=== PATIENT | female | born 2000 | race Caucasian/White ===

== ENCOUNTER 2022-09-28 03:11 | Observation (INO) ==
[2022-09-28] MEDS ORDERED: HYDROmorphone INJ 0.5 MG/0.5 ML SYR IV STA (03:39)
[2022-09-28] MEDS ORDERED: ONDANSETRON INJ 2 MG/ML 2 ML VIAL IV STA (03:39)
[2022-09-28] MEDS ORDERED: SODIUM CHLORIDE 0.9% 500 ML IV STA (03:39)
--- NOTE | 2022-09-28 03:54 | Emergency Department Note ---
Impression & Plan Cholelithiasis The case was signed out to Dr. Murry at change of shift awaiting results of an MRI of the abdomen to further evaluate a space-occupying lesion in the liver ED Provider Note NAME: KELLY DIALLO AGE: 22 SEX: F ARRIVES VIA: Walk-In INFORMANT: Patient ED PROVIDER(S): Bess Nowak DO CHIEF COMPLAINT: Right upper quadrant abdominal pain PLAN: Disposition: The case was signed out to Dr. Murry at change of shift Condition: Good MEDICAL DECISION MAKING: This is a 22-year-old female patient who presents to the emergency department with right upper quadrant abdominal pain. Pain started at 11 PM tonight and was associated with vomiting.. The patient 1 previous episode similar to this 2 months ago. Laboratory studies were drawn today which revealed no leukocytosis or anemia. Electrolytes were unremarkable. Renal function was normal. Liver function tests were normal. Urinalysis was normal. Pain was relieved with IV analgesia. Nausea was relieved with IV antiemetics. Her presentation seems consistent with acute cholecystitis or biliary colic. Ultrasound of the right upper quadrant revealed no evidence of acute cholecystitis but there was cholelithiasis. An incidental note was made of a space-occupying lesion within the liver. The patient will require an MRI of the liver. The case was signed out to Dr. Murry at change of shift awaiting for MRI of the abdomen. Triage Nursing notes reviewed and agree with them. Vital Signs: reviewed and unremarkable Differential diagnosis: Pneumonia, colitis, ulcer disease, cholecystitis, biliary colic, ureteral colic, pyelonephritis ER treatment provided: phototypesetting equipment monitor IV Dilaudid IV Zofran IV normal saline bolus Diagnostics independently interpreted by me: Laboratory studies: See below Imaging studies: As per stat rad Right upper quadrant ultrasound: See report HPI: 22 arrives for evaluation of right upper quadrant pain. Patient developed right upper quadrant abdominal pain around 11 PM this evening. She then noted the pain was not improving and had an episode of vomiting. Patient describes having a similar episode in July of this year for which she was evaluated and had an ultrasound of that kidney which was normal. She was treated with prednisone. Patient describes eating at [employer] last night where she had steak. PAST MEDICAL HISTORY:Tuyet's, anxiety, seasonal allergies FAMILY HISTORY:Cholecystitis-mother SOCIAL HISTORY:Patient lives with her family; she works for the [employer] HOME MEDICATIONS:See list ALLERGIES:None VITALS:See Below PHYSICAL EXAMINATION: HEENT: Head - normocephalic and atraumatic. Pupils are equal, round, and reactive to light. Extraocular eye muscles are intact, and sclera are anicteric. Nose - moist nasal mucosa without discharge. Mouth - moist buccal mucosa. Oropharynx is nonerythematous and there is no tonsillar exudate or edema noted. Neck: Supple; no cervical lymphadenopathy Heart: Regular rate and rhythm. There is a normal S1 and S2 with no murmurs, clicks, or gallops appreciated. Lungs: Clear to auscultation bilaterally with no wheezes, rales, or rhonchi. Abdomen: Soft, moderate tenderness to palpation in the right upper quadrant with palpation, nondistended, with good bowel sounds. There are no palpable pulsatile masses or hepatosplenomegaly. There is no guarding, rigidity, or rebound noted. Extremities: No evidence of cyanosis, clubbing, or edema. There are easily palpable peripheral pulses. Skin: warm and dry with good turgor and no rashes. ED COURSE: Times/Reassessments: 330: Patient was evaluated in room C4. A complete history and physical was performed. An IV lock was initiated and labs are drawn as above. IV normal saline bolus Patient was given a dose of IV Dilaudid and IV Zofran. She went for ultrasound of the right upper quadrant. Upon repeat evaluation, the patient was feeling much better. Reviewed the results of the laboratory studies with the patient. I reviewed the results of the ultrasound with the patient. Case will be signed out to Dr. Murry at change of shift. Bess Nowak DO Past Med/Surg History Surgical History History of ankle surgery S/P wisdom tooth extraction Family History Father Stroke Hypertension Mother Hypertension Denies family history of Ovarian cancer Prostate cancer Myocardial infarction Breast cancer Colorectal cancer Social History Smoking Status: Never smoker Second Hand Exposure: No; Do You Dip or Chew Tobacco: No; Hx Alcohol Use: Yes Alcohol type: hard liquor Alcohol Intake Frequency: Monthly or Less Hx Substance Use: No Preferred Language: Luxembourgish Communication Ability: Effective Visual Impairment: No Limitations Hearing Ability: Normal Director Gift Required: No marital status: Single Current Living Situation: Significant Other current occupational status: employed current occupation: [employer] How many Children do You have: 0 Feels Safe at Home: Yes Childhood Exposure to Second-Hand Smoke: Yes Diet: regular Dental Care, Regularly: Yes Physical Activity Frequency: 1-2 Times per Week Seatbelt Use: always Sunscreen Use: Yes Assistive Devices: None Allergies Allergies Allergy/AdvReac Type Severity Reaction Status Date / Time No Known Allergies Allergy Verified 06/05/22 08:57 Home Meds Home Medications Medication Instructions Recorded Confirmed cetirizine 10 mg tablet (Zyrtec) 10 mg PO DAILY PRN 03/21/21 06/05/22 Previous Rx's Medication Instructions Recorded norethindrone acetate 1 mg-ethinyl 1 tab PO DAILY #63 tabs 02/09/22 estradiol 20 mcg tablet (Junel) escitalopram oxalate 10 mg tablet 10 mg PO DAILY #30 tabs 05/01/22 (Lexapro) levothyroxine 88 mcg tablet 88 mcg PO DAILY #30 tabs 06/05/22 hydroxyzine HCl 25 mg tablet 25 mg PO TID PRN itching #30 tabs 08/04/22 ondansetron 4 mg disintegrating 4 mg PO Q8H PRN nausea and 08/04/22 tablet vomiting #30 tabs Results & Data (ED) Vital Signs Vital Signs - 24 hr 09/28/22 03:15 09/28/22 03:57 09/28/22 05:33 Temperature 35.8 C L Temperature Source Temporal Artery Scan Pulse Rate 82 Pulse Rate [Apical] 70 Respiratory Rate 17 15 Respiratory Depth Normal Blood Pressure 120/83 Blood Pressure [Right Arm] 117/69 Blood Pressure Mean 95 Blood Pressure Mean [Right Arm] 85 Pulse Oximetry 98 98 Oxygen Delivery Method Room Air Room Air Sepsis Recent Fever Within 48 Hours No Sepsis New/Unexplained Change in Mental Status N/A Sepsis Action Taken by Nursing No Action Required Laboratory Data 09/28/22 03:45 09/28/22 03:45 Lab Results 09/28/22 09/28/22 09/28/22 Range/Units 03:45 03:45 03:45 WBC 9.20 (4.8-10.8) K/ul RBC 4.80 (4.20-5.40) M/uL Hgb 14.2 (12.0-16.0) g/dl Hct 42.7 (37.0-47.0) % MCV 89.0 (80.0-100.0) fL MCH 29.6 (25.0-34.0) pg MCHC 33.3 (32.0-36.0) g/dL RDW Std Deviation 37.4 (36.4-46.3) fL RDW Coeff of Ebonie 11.6 (11.5-14.5) % Plt Count 357 (130-400) K/uL MPV 9.6 (9.4-12.4) fL Immature Gran % (Auto) 0.3 % Neut % (Auto) 54.8 % Lymph % (Auto) 35.8 % Banks % (Auto) 5.9 % Eos % (Auto) 2.9 % Baso % (Auto) 0.3 % Neut # (Auto) 5.04 (1.40-6.50) K/uL Lymph # (Auto) 3.29 (1.2-3.4) K/uL Banks # (Auto) 0.54 (0.11-0.59) K/uL Eos # (Auto) 0.27 (0-0.50) K/uL Baso # (Auto) 0.03 (0-0.2) K/uL Immature Gran # (Auto) 0.03 (0.01-0.20) K/uL Sodium 138 (136-145) mmol/L Potassium 4.1 (3.5-5.1) mmol/L Chloride 105 (98-107) mmol/L Carbon Dioxide 25 (21-32) mmol/L Anion Gap 8 (3-11) BUN 9 (6-23) mg/dl Creatinine 0.81 (0.6-1.2) mg/dl Est Cr Clr Drug Dosing 124.3 ml/min Est GFR ( Amer) 117.8 ml/min Est GFR (Non-Af Amer) 101.7 ml/min BUN/Creatinine Ratio 11.1 (10-20) Glucose 85 (70-99(Fasting)) mg/dl Calcium 9.2 (8.6-10.3) mg/dl Total Bilirubin 0.2 (0.2-1.0) mg/dl AST 20 (13-39) U/L ALT 25 (7-52) U/L Alkaline Phosphatase 95 (34-104) U/L Total Protein 7.7 (6.0-8.3) gm/dl Albumin 4.2 (3.4-5.0) gm/dl Globulin 3.5 (2.5-4.0) gm/dl Albumin/Globulin Ratio 1.2 (0.9-2) Lipase 28 (11-82) U/L HCG, Qual Negative (Negative) Urine Color Urine Appearance (Clear) Urine pH (4.5-7.5) Ur Specific [place] (1.000-1.030) Urine Protein (Negative) Urine Glucose (UA) (Negative) Urine Ketones (Negative) Urine Blood (Negative) Urine Nitrite (Negative) Urine Bilirubin (Negative) Urine Urobilinogen (Negative) Ur Leukocyte Esterase (Negative) Urine WBC (Auto) (0-5) /hpf Urine RBC (Auto) (0-4) /hpf U Hyaline Cast (Auto) (0-5) /lpf U Epithel Cells (Auto) (0-5) /lpf Urine Bacteria (Auto) (Negative) 09/28/22 Range/Units 03:54 WBC (4.8-10.8) K/ul RBC (4.20-5.40) M/uL Hgb (12.0-16.0) g/dl Hct (37.0-47.0) % MCV (80.0-100.0) fL MCH (25.0-34.0) pg MCHC (32.0-36.0) g/dL RDW Std Deviation (36.4-46.3) fL RDW Coeff of Ebonie (11.5-14.5) % Plt Count (130-400) K/uL MPV (9.4-12.4) fL Immature Gran % (Auto) % Neut % (Auto) % Lymph % (Auto) % Banks % (Auto) % Eos % (Auto) % Baso % (Auto) % Neut # (Auto) (1.40-6.50) K/uL Lymph # (Auto) (1.2-3.4) K/uL Banks # (Auto) (0.11-0.59) K/uL Eos # (Auto) (0-0.50) K/uL Baso # (Auto) (0-0.2) K/uL Immature Gran # (Auto) (0.01-0.20) K/uL Sodium (136-145) mmol/L Potassium (3.5-5.1) mmol/L Chloride (98-107) mmol/L Carbon Dioxide (21-32) mmol/L Anion Gap (3-11) BUN (6-23) mg/dl Creatinine (0.6-1.2) mg/dl Est Cr Clr Drug Dosing ml/min Est GFR ( Amer) ml/min Est GFR (Non-Af Amer) ml/min BUN/Creatinine Ratio (10-20) Glucose (70-99(Fasting)) mg/dl Calcium (8.6-10.3) mg/dl Total Bilirubin (0.2-1.0) mg/dl AST (13-39) U/L ALT (7-52) U/L Alkaline Phosphatase (34-104) U/L Total Protein (6.0-8.3) gm/dl Albumin (3.4-5.0) gm/dl Globulin (2.5-4.0) gm/dl Albumin/Globulin Ratio (0.9-2) Lipase (11-82) U/L HCG, Qual (Negative) Urine Color Yellow Urine Appearance Clear (Clear) Urine pH 7.0 (4.5-7.5) Ur Specific [place] 1.015 (1.000-1.030) Urine Protein Negative (Negative) Urine Glucose (UA) Negative (Negative) Urine Ketones Negative (Negative) Urine Blood Negative (Negative) Urine Nitrite Negative (Negative) Urine Bilirubin Negative (Negative) Urine Urobilinogen Negative (Negative) Ur Leukocyte Esterase Trace H (Negative) Urine WBC (Auto) 1-5 (0-5) /hpf Urine RBC (Auto) 0-4 (0-4) /hpf U Hyaline Cast (Auto) 1-5 (0-5) /lpf U Epithel Cells (Auto) >30 H (0-5) /lpf Urine Bacteria (Auto) 1+ H (Negative) Administered Medications Discontinued Medications Hydromorphone HCl (Hydromorphone Inj 0.5 Mg/0.5 Ml Syr) 0.5 mg IV NOW STA Stop: 09/28/22 03:40 Last Admin: 09/28/22 04:00 Dose: 0.5 mg Documented By: DARRYN Sodium Chloride (Nss) 500 mls @ 999 mls/hr IV .Q31M STA Stop: 09/28/22 04:09 Last Infusion: 09/28/22 04:48 Dose: 0 mls/hr Documented By: Admin: 09/28/22 04:00 Dose: 999 mls/hr Documented By: DARRYN Ondansetron HCl (Ondansetron Inj 2 Mg/Ml 2 Ml Vial) 4 mg IV NOW STA Stop: 09/28/22 03:40 Last Admin: 09/28/22 04:00 Dose: 4 mg Documented By: DARRYN Imaging Data Radiologist's Impression: Gallbladder Ultrasound 09/28/22 03:39 Exam(s): US GALLBLADDER EXAM: US Abdomen Limited, Gallbladder CLINICAL HISTORY: Reason for exam: ruq pain. TECHNIQUE: Real-time ultrasound of the right upper quadrant with image documentation. COMPARISON: No relevant prior studies available. FINDINGS: Liver: There is a 2.6 x 2 cm diameter space-occupying lesion seen in the left lobe of the liver. Fatty infiltration of the liver. Gallbladder: There is cholelithiasis without evidence of acute cholecystitis. 5 mm polyp seen in the fundus of the gallbladder. Common bile duct: CBD caliber measures 2.5 mm in diameter. No stones. No dilation. Pancreas: Unremarkable as visualized. IMPRESSION: 1. Cholelithiasis without evidence of acute cholecystitis 2. Fatty liver. Space-occupying mass lesion in the left lobe of the liver which can be further evaluated on MRI study. Electronically signed by: Shin Reeves MD 09/28/22 06:41 AM Discharge Plan Visit Data Chief Complaint: Rib Injury/Pain Stated Complaint: RIGHT SIDED RIB PAIN ED Provider: Rigo Murry Discharge Problem: Cholelithiasis Discharge Instructions Krames/Other Patient Handouts: Treating Gallstones, Gallstones Dc, ED Gallstones with Biliary Colic Activity Restrictions/Additional Instructions: Rest Take a bland diet and plenty of clear liquids If you develop any fevers or vomiting, return to the emergency department If you develop increasing pain that will not resolve, return to the emergency department. Otherwise follow-up with his general surgery Forms Stand Alone Forms: My [facility] [employer] [facility] [employer] Prescriptions Prescriptions: No Action norethindrone ac-eth estradiol [03/13 (21)] 1-20 mg-mcg tablet 1 tab PO DAILY Qty: 63 4RF escitalopram oxalate [Lexapro] 10 mg tablet 10 mg PO DAILY Qty: 30 3RF hydroxyzine HCl 25 mg tablet 25 mg PO TID PRN (Reason: itching) Qty: 30 2RF ondansetron 4 mg tablet,disintegrating 4 mg PO Q8H PRN (Reason: nausea and vomiting) Qty: 30 1RF cetirizine [Zyrtec] 10 mg tablet 10 mg PO DAILY PRN levothyroxine 88 mcg tablet 88 mcg PO DAILY Qty: 30 4RF Rx Instructions: Take one tablet by mouth once daily. Take 30-45 minutes before any other oral intake. Referrals Referrals: Paul Lopez MD [Physician] - (Contact his office in the morning for a surgical appointment) Dimas Lopez DO [Primary Care Provider] -
[2022-09-28 04:10] LABS: Basophils # (auto) 0.03 K/uL (0-0.2); Basophils % (auto) 0.3 %; Eosinophils # (auto) 0.27 K/uL (0-0.50); Eosinophils % (auto) 2.9 %; Hematocrit (blood only) 42.7 % (37.0-47.0); Hemoglobin 14.2 g/dl (12.0-16.0); Immature Granulocytes # (auto) 0.03 K/uL (0.01-0.20); Immature Granulocytes % (auto) 0.3 %; Lymphocytes # (auto) 3.29 K/uL (1.2-3.4); Lymphocytes % (auto) 35.8 %; Mean Corpuscular Hemoglobin 29.6 pg (25.0-34.0); Mean Corpuscular Hgb Conc 33.3 g/dL (32.0-36.0); Mean Platelet Volume 9.6 fL (9.4-12.4); Monocytes # (auto) 0.54 K/uL (0.11-0.59); Monocytes % (auto) 5.9 %; Neutrophils # (auto) 5.04 K/uL (1.40-6.50); Neutrophils % (auto) 54.8 %; Platelet Count 357 K/uL (130-400); RDW Coefficient of Variation 11.6 % (11.5-14.5); RDW Standard Deviation 37.4 fL (36.4-46.3)
[2022-09-28 04:13] LABS: Appearance Urine Clear (Clear); Bacteria Urine Automated 1+ (Negative); Bilirubin Urine Negative (Negative); Blood Urine Negative (Negative); Color Urine Yellow; Epithelial Cell Urine Auto >30 /lpf (0-5); Glucose Urine UA Negative (Negative); Ketones Urine Negative (Negative); Leukocyte Esterase Urine Trace (Negative); Nitrite Urine Negative (Negative); Protein Urine Negative (Negative); RBC Urine Automated 0-4 /hpf (0-4); Specific Gravity Urine 1.015 (1.000-1.030); Urobilinogen Urine Negative (Negative)
[2022-09-28 04:29] LABS: Albumin Globulin Ratio 1.2 (0.9-2); Albumin Level 4.2 gm/dl (3.4-5.0); BUN Creatinine Ratio 11.1 (10-20); Bilirubin,Total 0.2 mg/dl (0.2-1.0); Calcium 9.2 mg/dl (8.6-10.3); Creatinine Clr Calc Pharmacy 124.3 ml/min; Est GFR (African American) 117.8 ml/min; Est GFR (Non-African American) 101.7 ml/min; Globulin 3.5 gm/dl (2.5-4.0); Potassium 4.1 mmol/L (3.5-5.1); Total Protein 7.7 gm/dl (6.0-8.3)
[2022-09-28 04:32] LABS: Pregnancy Test, Serum Negative (Negative)
--- NOTE | 2022-09-28 06:41 | Ultrasound Report ---
Exam(s): US GALLBLADDER EXAM: US Abdomen Limited, Gallbladder CLINICAL HISTORY: Reason for exam: ruq pain. TECHNIQUE: Real-time ultrasound of the right upper quadrant with image documentation. COMPARISON: No relevant prior studies available. FINDINGS: Liver: There is a 2.6 x 2 cm diameter space-occupying lesion seen in the left lobe of the liver. Fatty infiltration of the liver. Gallbladder: There is cholelithiasis without evidence of acute cholecystitis. 5 mm polyp seen in the fundus of the gallbladder. Common bile duct: CBD caliber measures 2.5 mm in diameter. No stones. No dilation. Pancreas: Unremarkable as visualized. IMPRESSION: 1. Cholelithiasis without evidence of acute cholecystitis 2. Fatty liver. Space-occupying mass lesion in the left lobe of the liver which can be further evaluated on MRI study. Electronically signed by: Shin Reeves MD 09/28/22 06:41 AM
[2022-09-28] MEDS ORDERED: GADOXETATE DISODIUM IV ONE (07:46)
--- NOTE | 2022-09-28 08:25 | Magnetic Resonance Report ---
MRI OF THE ABDOMEN COMBO; MRCP CLINICAL HISTORY: Cholecystitis. Liver lesion. COMPARISON STUDY: Abdominal ultrasound dated 09/28/2022.. TECHNIQUE: MRI of the abdomen is performed transverse T1 and T2-weighted sequences in the axial and c oronal planes. Contrast enhanced sequences were acquired following the IV administration of 10 cc of Eovist. Additional high-resolution MRCP images were obtained. 3-D reformats are created and assesse d. Diffusion weighted imaging and subtraction imaging was utilized. FINDINGS: Lower chest: No pleural effusion is identified. The heart is normal in size end pericardial effusion. There is a small hiatal hernia. Liver: The liver is normal in size, contour, and signal intensity. No intrahepatic biliary ductal dil atation is seen. The hepatic veins and portal veins are patent. There is a 2.6 x 2.0 cm faintly T2 hy perintense and arterially hypervascular lesion in the left lobe of liver seen on axial postcontrast i mage #38. A similar-appearing lesion in the right lobe seen on the same image measures 4.8 x 3.9 cm. These lesions become nearly isointense to the liver on the portal venous phase imaging and retain Eov ist on the delayed phase imaging. These are typical for benign focal nodular hyperplasias. A third 1. 5 cm focal nodular hyperplasia is seen more inferiorly adjacent to gallbladder fossa on image #48. Gallbladder/MRCP: There are numerous gallstones. The gallbladder is distended, and the wall is thicke corey and edematous. This is consistent with acute cholecystitis. There is no intra or extrahepatic marvel iary ductal dilatation. The common bile duct measures up to 3.5 mm diameter. No intraluminal filling defects are seen to suggest choledocholithiasis. The pancreatic duct is normal in caliber. Spleen: Normal in size and signal intensity. Pancreas: Unremarkable. Adrenal glands: Unremarkable. Kidneys: The kidneys are normal in size and without hydronephrosis. The kidneys enhance and excrete s ymmetrically. Abdominal aorta: Normal in course and caliber. Bowel: Visualized portions of the small bowel and colon show no evidence of obstruction. Peritoneum: There is no abdominal ascites. Lymphadenopathy: None. Skeletal structures: Visualized skeletal structures times are normal marrow signal intensity. IMPRESSION: 1. Cholelithiasis with evidence of acute cholecystitis. 2. There is no choledocholithiasis. 3. There are 3 hepatic lesions identified as detailed above. These show enhancement kinetics consiste nt with benign focal nodular hyperplasias. ACT 112: Negative or not required by law. Electronically signed by: Donato Krishna M.D. 09/28/2022 8:24 AM
--- NOTE | 2022-09-28 08:39 | Emergency Department Note ---
ED Visit Note Patient was signed out to me at change of shift by Dr. Nowak, pending liver MRI for nonspecific lesions noted on ultrasound imaging earlier today. Patient presented with right upper quadrant abdominal pain. MRI imaging was obtained and is concerning for acute cholecystitis. I did discuss this finding with the patient and her significant other at the bedside, general surgery was consulted and the case was discussed with on-call general surgery, Dr. Lopez. He states they will evaluate the patient for potential operative intervention. Patient was evaluated at the bedside by the general surgery midlevel provider, decision was made that the patient will require operative intervention later today. Patient is in agreement to this plan. She was placed for admission in stable condition. .
[2022-09-28] MEDS ORDERED: ceFAZolin 2000MG 2,000 MG/15 ML SYR IV ONE (10:48)
--- NOTE | 2022-09-28 10:48 | History & Physical Report ---
Date of Service September 28, 2022 Assessment & Plan (1) Acute calculous cholecystitis: Plan: 22 year-old female with less than 12 hour history of RUQ pain with radiation to her back and associated nausea and vomiting . Ultrasound showing cholelithiasis, MRCP showing acute cholecystitis. No leukocytosis, afebrile, normal t. bili and LFTS. Plan: Discussed imaging and lab findings with patient. MRCP showing evidence of acute cholecystitis. Discussed indication for cholecystectomy and discussed laparoscopic approach and associated risks of procedure and expected recovery time. She would like to proceed with laparoscopic cholecystectomy. Will plan to take to OR at earliest convenience. Keep NPO COVID preop testing Will given 2 gms Ancef preop Discussed with Dr. Lopez who will see patient preoperatively and obtain informed consent. Plan I have seen and examined the patient agree with the above assessment and plan. In brief, 22-year-old woman with acute cholecystitis. Discussed risks and benefits of laparoscopic cholecystectomy. All questions were answered. Will take her to the operating room at the earliest convenience. History of Present Illness Chief Complaint: RUQ abdominal pain Primary Care Provider: DO Marge Devlin is a 22 year-old female with history of anxiety and hasimoto's thyroiditis presented to ED with complaint of RUQ abdominal pain with associated nausea and vomiting x 1. Pain started last evening around 11 pm. Sudden onset of RUQ pain with radiation to her back. No fevers or chills. Associated nausea with one episode of vomiting. Denies chest pain, shortness of breath, diarrhea, constipation, blood in stools, difficulty urinating or blood in urine. No prior history of gallbladder issues. No prior abdominal surgeries. No blood thining agents. ER work-up included labs which showed no leukocytosis, t. bili and lfts wnl. Ultrasound showing gallstones with no evidence of acute cholecystitis however MRI for follow-up of liver lesions showing distended gallbladder with wall thickening and pericholecystic fluid concerning for acute cholecystitis. Allergies Allergy/AdvReac Type Severity Reaction Status Date / Time No Known Allergies Allergy Verified 09/28/22 11:00 Home Medications Medication Instructions Recorded Confirmed Type cetirizine 10 mg tablet (Zyrtec) 10 mg PO DAILY PRN Allergy Symptoms 03/21/21 09/28/22 History norethindrone acetate 1 mg-ethinyl 1 tab PO DAILY #63 tabs 02/09/22 09/28/22 Rx estradiol 20 mcg tablet (Junel) escitalopram oxalate 10 mg tablet 10 mg PO DAILY #30 tabs 05/01/22 09/28/22 Rx (Lexapro) levothyroxine 88 mcg tablet 88 mcg PO DAILY #30 tabs 06/05/22 09/28/22 Rx hydroxyzine HCl 25 mg tablet 25 mg PO TID PRN itching #30 tabs 08/04/22 09/28/22 Rx ondansetron 4 mg disintegrating 4 mg PO Q8H PRN nausea and 08/04/22 09/28/22 Rx tablet vomiting #30 tabs Past Med/Surg History 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/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 Surgical History (Updated 09/28/22 @ 11:01 by Laura Lay RN) History of ankle surgery right ankle fracture S/P wisdom tooth extraction Family History Father Stroke Hypertension Mother Hypertension Denies family history of Ovarian cancer Prostate cancer Myocardial infarction Breast cancer Colorectal cancer Social History Smoking Status: Never smoker Second Hand Exposure: No; Do You Dip or Chew Tobacco: No; Hx Alcohol Use: Yes Alcohol type: hard liquor Alcohol Intake Frequency: Monthly or Less Hx Substance Use: No Preferred Language: Japanese Communication Ability: Effective Visual Impairment: No Limitations Hearing Ability: Normal Director Of Property Management Required: No marital status: Single Current Living Situation: Significant Other current occupational status: employed current occupation: PART[employer] How many Children do You have: 0 Feels Safe at Home: Yes Childhood Exposure to Second-Hand Smoke: Yes Diet: regular Dental Care, Regularly: Yes Physical Activity Frequency: 1-2 Times per Week Seatbelt Use: always Sunscreen Use: Yes Assistive Devices: None Review of Systems Review of Systems: All systems reviewed & are unremarkable except as noted in HPI & below Physical Exam Constitutional: WD/WN, vitals as above + obese, cooperative and comfortable; no acute distress and not ill appearing Respiratory: normal respiratory effort, lungs clear to auscultation Cardiovascular: RRR, no murmur, no edema Gastrointestinal (Abdomen): Inspection/Auscultation: abdomen normal to inspection; abdomen not distended Percussion/Palpation: + abdomen tender (RUQ on deep palpation, negative Mccann's) and abdomen soft; no guarding, abdomen not rigid and abdomen not firm Skin: no rashes, warm and dry no jaundice Psychiatric: A+Ox3, euthymic affect Results & Data Results & Data Vital Signs (Past 12 Hours) Vital Signs Temp Pulse Pulse Resp BP BP Pulse Ox 09/28/22 10:26 70 18 120/75 98 09/28/22 08:11 78 18 125/85 98 09/28/22 05:33 70 15 117/69 98 09/28/22 03:57 09/28/22 03:15 35.8 C L 82 17 120/83 98 O2 Del Method 09/28/22 10:26 Room Air 09/28/22 08:11 Room Air 09/28/22 05:33 09/28/22 03:57 Room Air 09/28/22 03:15 Room Air Laboratory Results 09/28/22 09/28/22 09/28/22 Range/Units Unknown 03:54 03:45 WBC (4.8-10.8) K/ul RBC (4.20-5.40) M/uL Hgb (12.0-16.0) g/dl Hct (37.0-47.0) % MCV (80.0-100.0) fL MCH (25.0-34.0) pg MCHC (32.0-36.0) g/dL RDW Std Deviation (36.4-46.3) fL RDW Coeff of [place]bonie (11.5-14.5) % Plt Count (130-400) K/uL MPV (9.4-12.4) fL Immature Gran % (Auto) % Neut % (Auto) % Lymph % (Auto) % [place] % (Auto) % Eos % (Auto) % Baso % (Auto) % Neut # (Auto) (1.40-6.50) K/uL Lymph # (Auto) (1.2-3.4) K/uL [place] # (Auto) (0.11-0.59) K/uL Eos # (Auto) (0-0.50) K/uL Baso # (Auto) (0-0.2) K/uL Immature Gran # (Auto) (0.01-0.20) K/uL Sodium (136-145) mmol/L Potassium (3.5-5.1) mmol/L Chloride (98-107) mmol/L Carbon Dioxide (21-32) mmol/L Anion Gap (3-11) BUN (6-23) mg/dl Creatinine (0.6-1.2) mg/dl Est Cr Clr Drug Dosing ml/min Est GFR ( Amer) ml/min Est GFR (Non-Af Amer) ml/min BUN/Creatinine Ratio (10-20) Glucose (70-99(Fasting)) mg/dl Calcium (8.6-10.3) mg/dl Total Bilirubin (0.2-1.0) mg/dl AST (13-39) U/L ALT (7-52) U/L Alkaline Phosphatase (34-104) U/L Total Protein (6.0-8.3) gm/dl Albumin (3.4-5.0) gm/dl Globulin (2.5-4.0) gm/dl Albumin/Globulin Ratio (0.9-2) Lipase (11-82) U/L HCG, Qual Negative (Negative) Urine Color Yellow Urine Appearance Clear (Clear) Urine pH 7.0 (4.5-7.5) Ur Specific [place] 1.015 (1.000-1.030) Urine Protein Negative (Negative) Urine Glucose (UA) Negative (Negative) Urine Ketones Negative (Negative) Urine Blood Negative (Negative) Urine Nitrite Negative (Negative) Urine Bilirubin Negative (Negative) Urine Urobilinogen Negative (Negative) Ur Leukocyte Esterase Trace H (Negative) Urine WBC (Auto) 1-5 (0-5) /hpf Urine RBC (Auto) 0-4 (0-4) /hpf U Hyaline Cast (Auto) 1-5 (0-5) /lpf U Epithel Cells (Auto) >30 H (0-5) /lpf Urine Bacteria (Auto) 1+ H (Negative) SARS-CoV-2, RNA, NAAT NEGATIVE (NEGATIVE) 09/28/22 09/28/22 Range/Units 03:45 03:45 WBC 9.20 (4.8-10.8) K/ul RBC 4.80 (4.20-5.40) M/uL Hgb 14.2 (12.0-16.0) g/dl Hct 42.7 (37.0-47.0) % MCV 89.0 (80.0-100.0) fL MCH 29.6 (25.0-34.0) pg MCHC 33.3 (32.0-36.0) g/dL RDW Std Deviation 37.4 (36.4-46.3) fL RDW Coeff of Ebonie 11.6 (11.5-14.5) % Plt Count 357 (130-400) K/uL MPV 9.6 (9.4-12.4) fL Immature Gran % (Auto) 0.3 % Neut % (Auto) 54.8 % Lymph % (Auto) 35.8 % Phelps % (Auto) 5.9 % Eos % (Auto) 2.9 % Baso % (Auto) 0.3 % Neut # (Auto) 5.04 (1.40-6.50) K/uL Lymph # (Auto) 3.29 (1.2-3.4) K/uL Phelps # (Auto) 0.54 (0.11-0.59) K/uL Eos # (Auto) 0.27 (0-0.50) K/uL Baso # (Auto) 0.03 (0-0.2) K/uL Immature Gran # (Auto) 0.03 (0.01-0.20) K/uL Sodium 138 (136-145) mmol/L Potassium 4.1 (3.5-5.1) mmol/L Chloride 105 (98-107) mmol/L Carbon Dioxide 25 (21-32) mmol/L Anion Gap 8 (3-11) BUN 9 (6-23) mg/dl Creatinine 0.81 (0.6-1.2) mg/dl Est Cr Clr Drug Dosing 124.3 ml/min Est GFR ( Amer) 117.8 ml/min Est GFR (Non-Af Amer) 101.7 ml/min BUN/Creatinine Ratio 11.1 (10-20) Glucose 85 (70-99(Fasting)) mg/dl Calcium 9.2 (8.6-10.3) mg/dl Total Bilirubin 0.2 (0.2-1.0) mg/dl AST 20 (13-39) U/L ALT 25 (7-52) U/L Alkaline Phosphatase 95 (34-104) U/L Total Protein 7.7 (6.0-8.3) gm/dl Albumin 4.2 (3.4-5.0) gm/dl Globulin 3.5 (2.5-4.0) gm/dl Albumin/Globulin Ratio 1.2 (0.9-2) Lipase 28 (11-82) U/L HCG, Qual (Negative) Urine Color Urine Appearance (Clear) Urine pH (4.5-7.5) Ur Specific [place] (1.000-1.030) Urine Protein (Negative) Urine Glucose (UA) (Negative) Urine Ketones (Negative) Urine Blood (Negative) Urine Nitrite (Negative) Urine Bilirubin (Negative) Urine Urobilinogen (Negative) Ur Leukocyte Esterase (Negative) Urine WBC (Auto) (0-5) /hpf Urine RBC (Auto) (0-4) /hpf U Hyaline Cast (Auto) (0-5) /lpf U Epithel Cells (Auto) (0-5) /lpf Urine Bacteria (Auto) (Negative) SARS-CoV-2, RNA, NAAT (NEGATIVE) Diagnostic Findings Exam(s): US GALLBLADDER EXAM: US Abdomen Limited, Gallbladder CLINICAL HISTORY: Reason for exam: ruq pain. TECHNIQUE: Real-time ultrasound of the right upper quadrant with image documentation. COMPARISON: No relevant prior studies available. FINDINGS: Liver: There is a 2.6 x 2 cm diameter space-occupying lesion seen in the left lobe of the liver. Fatty infiltration of the liver. Gallbladder: There is cholelithiasis without evidence of acute cholecystitis. 5 mm polyp seen in the fundus of the gallbladder. Common bile duct: CBD caliber measures 2.5 mm in diameter. No stones. No dilation. Pancreas: Unremarkable as visualized. IMPRESSION: 1. Cholelithiasis without evidence of acute cholecystitis 2. Fatty liver. Space-occupying mass lesion in the left lobe of the liver which can be further evaluated on MRI study. MRI OF THE ABDOMEN COMBO; MRCP CLINICAL HISTORY: Cholecystitis. Liver lesion. COMPARISON STUDY: Abdominal ultrasound dated 09/28/2022.. TECHNIQUE: MRI of the abdomen is performed transverse T1 and T2-weighted sequences in the axial and coronal planes. Contrast enhanced sequences were acquired following the IV administration of 10 cc of Eovist. Additional high- resolution MRCP images were obtained. 3-D reformats are created and assessed. Diffusion weighted imaging and subtraction imaging was utilized. FINDINGS: Lower chest: No pleural effusion is identified. The heart is normal in size end pericardial effusion. There is a small hiatal hernia. Liver: The liver is normal in size, contour, and signal intensity. No intrahepatic biliary ductal dilatation is seen. The hepatic veins and portal veins are patent. There is a 2.6 x 2.0 cm faintly T2 hyperintense and arterially hypervascular lesion in the left lobe of liver seen on axial postcontrast image #38. A similar-appearing lesion in the right lobe seen on the same image measure s 4.8 x 3.9 cm. These lesions become nearly isointense to the liver on the portal venous phase imaging and retain Eovist on the delayed phase imaging. These are typical for benign focal nodular hyperplasias. A third 1.5 cm focal nodular hyperplasia is seen more inferiorly adjacent to gallbladder fossa on image #48. Gallbladder/MRCP: There are numerous gallstones. The gallbladder is distended, and the wall is thickened and edematous. This is consistent with acute cholecystitis. There is no intra or extrahepatic biliary ductal dilatation. The common bile duct measures up to 3.5 mm diameter. No intraluminal filling defects are seen to suggest choledocholithiasis. The pancreatic duct is normal in caliber. Spleen: Normal in size and signal intensity. Pancreas: Unremarkable. Adrenal glands: Unremarkable. Kidneys: The kidneys are normal in size and without hydronephrosis. The kidneys enhance and excrete symmetrically. Abdominal aorta: Normal in course and caliber. Bowel: Visualized portions of the small bowel and colon show no evidence of obstruction. Peritoneum: There is no abdominal ascites. Lymphadenopathy: None. Skeletal structures: Visualized skeletal structures times are normal marrow signal intensity. IMPRESSION: 1. Cholelithiasis with evidence of acute cholecystitis. 2. There is no choledocholithiasis. 3. There are 3 hepatic lesions identified as detailed above. These show enhancement kinetics consistent with benign focal nodular hyperplasias. Code Status & VTE Plan VTE Prophylaxis Plan VTE Prophylaxis will be ordered: Yes
--- NOTE | 2022-09-28 11:21 | Anesthesiology Consultation ---
Date of Service September 28, 2022 Assessment & Plan Chart Review Chart Review: Acceptable Risk for Surgery Consults Requested none History Surgery Operation Date: 09/28/22 14:00 Proposed Procedures p Laparoscopic Cholecystectomy - Paul Lopez MD Height/Weight Height: 5 ft 3 in Weight: 105.2 kg Allergies Allergy/AdvReac Type Severity Reaction Status Date / Time No Known Allergies Allergy Verified 09/28/22 11:00 Medications Home Medications Medication Instructions Recorded Confirmed Last Taken cetirizine 10 mg tablet (Zyrtec) 10 mg PO DAILY PRN Allergy Symptoms 03/21/21 09/28/22 09/27/22 norethindrone acetate 1 mg-ethinyl 1 tab PO DAILY #63 tabs 02/09/22 09/28/22 09/27/22 estradiol 20 mcg tablet (Junel) escitalopram oxalate 10 mg tablet 10 mg PO DAILY #30 tabs 05/01/22 09/28/22 09/27/22 (Lexapro) levothyroxine 88 mcg tablet 88 mcg PO DAILY #30 tabs 06/05/22 09/28/22 09/27/22 hydroxyzine HCl 25 mg tablet 25 mg PO TID PRN itching #30 tabs 08/04/22 09/28/22 Unknown ondansetron 4 mg disintegrating 4 mg PO Q8H PRN nausea and 08/04/22 09/28/22 09/27/22 tablet vomiting #30 tabs NPO Date Last Intake of Fluids: 09/27/22 Time Last Intake of Fluids: 19:00 Date Last Intake of Solids: 09/27/22 Time Last Intake of Solids: 19:00 Past Medical History 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/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 Past Family History Family History Father Stroke Hypertension Mother Hypertension Denies family history of Ovarian cancer Prostate cancer Myocardial infarction Breast cancer Colorectal cancer Past Surgical History Surgical History (Updated 09/28/22 @ 11:01 by Laura Lay RN) History of ankle surgery right ankle fracture S/P wisdom tooth extraction Social History Smoking Status: Never smoker Do You Dip or Chew Tobacco: No Hx Alcohol Use: Yes Alcohol type: hard liquor Hx Substance Use: No Physical Exam Vital Signs Last Vital Signs Temp 36.8 C 09/28/22 10:57 Pulse 75 09/28/22 10:57 Resp 20 09/28/22 10:57 BP 116/75 09/28/22 10:57 Pulse Ox 99 09/28/22 10:57 O2 Del Method Room Air 09/28/22 10:57 Testing Laboratory Results 09/28/22 03:45 09/28/22 03:45 Urine Color Yellow 09/28/22 03:54 Urine Appearance Clear (Clear) 09/28/22 03:54 Urine pH 7.0 (4.5-7.5) 09/28/22 03:54 Ur Specific [place] 1.015 (1.000-1.030) 09/28/22 03:54 Urine Protein Negative (Negative) 09/28/22 03:54 Urine Glucose (UA) Negative (Negative) 09/28/22 03:54 Urine Ketones Negative (Negative) 09/28/22 03:54 Urine Nitrite Negative (Negative) 09/28/22 03:54 Ur Leukocyte Esterase Trace (Negative) H 09/28/22 03:54 Urine WBC (Auto) 1-5 /hpf (0-5) 09/28/22 03:54 Urine RBC (Auto) 0-4 /hpf (0-4) 09/28/22 03:54 U Hyaline Cast (Auto) 1-5 /lpf (0-5) 09/28/22 03:54 U Epithel Cells (Auto) >30 /lpf (0-5) H 09/28/22 03:54 Urine Bacteria (Auto) 1+ (Negative) H 09/28/22 03:54
[2022-09-28] MEDS ORDERED: ONDANSETRON INJ 2 MG/ML 2 ML VIAL IV PRN ×2 (11:22→16:09)
[2022-09-28] MEDS ORDERED: ePHEDrine sulfate 50 MG/ML AMP IV PRN (11:22)
[2022-09-28] MEDS ORDERED: ATROPINE SULFATE 0.1 MG/ML 10ML SYR IV PRN (11:22)
[2022-09-28] MEDS ORDERED: fentaNYL citrate PF 100 MCG/2 ML VIAL IV PRN (11:22)
[2022-09-28] MEDS ORDERED: PROMETHAZINE HCL 12.5 MG in SODIUM CHLORIDE 0.9% 50 ML IV PRN ×2 (11:22→16:09)
[2022-09-28] MEDS ORDERED: HYDROmorphone INJ 2 MG/ML SYR/VIAL IV PRN (11:22)
[2022-09-28] MEDS ORDERED: MIDAZOLAM HCL 1 MG/ML 2ML VIAL ONE (13:09)
[2022-09-28] MEDS ORDERED: fentaNYL citrate PF 100 MCG/2 ML VIAL ONE ×2 (13:09→14:04)
[2022-09-28] MEDS ORDERED: BUPIVACAINE/EPINEPHRINE 0.25% 1:200,000 30 ML VIAL ONE (13:16)
[2022-09-28] MEDS ORDERED: LIDOCAINE 2% 2 ML VIAL/AMP(20MG/ML) INFIL ONE (13:45)
[2022-09-28] MEDS ORDERED: ONDANSETRON INJ 2 MG/ML 2 ML VIAL ONE (13:45)
[2022-09-28] MEDS ORDERED: SUGAMMADEX SODIUM 200 MG/2 ML VIAL IV ONE (13:45)
[2022-09-28] MEDS ORDERED: PROPOFOL IV EMULSION 10 MG/ML 20 ML VIAL IV ONE (13:45)
[2022-09-28] MEDS ORDERED: DEXAMETHASONE SOD INJ 4 MG/ML VIAL ONE (13:45)
[2022-09-28] MEDS ORDERED: ROCURONIUM BROMIDE 10 MG/ML 5 ML VIAL IV ONE (13:45)
--- NOTE | 2022-09-28 14:19 | Post Operative Brief Note ---
Immediate Post Op Note v1 Date of Surgery September 28, 2022 Pre & Post Diagnosis Operation Date: 09/28/22 14:00 Pre-Op Diagnosis: Acute calculous cholecystitis Post-Op Diagnosis: Acute calculous cholecystitis I identified the patient and participated in the time-out.: Yes Procedure Operation Date: 09/28/22 14:00 Actual Procedures p Laparoscopic Cholecystectomy(Not Applicable) - Paul Lopez MD Surgeon Paul Lopez MD Traffic Control Operator СЕРГЕЙ Torrez assisted with tissue retraction, camera op, closure Estimated Blood Loss 5 Findings Consistent with Post-Op Diagnosis
--- NOTE | 2022-09-28 14:19 | Post Operative Brief Note ---
Immediate Post Op Note v1 Date of Surgery September 28, 2022 Pre & Post Diagnosis Operation Date: 09/28/22 14:00 Pre-Op Diagnosis: Acute calculous cholecystitis Post-Op Diagnosis: Acute calculous cholecystitis I identified the patient and participated in the time-out.: Yes Procedure Operation Date: 09/28/22 14:00 Actual Procedures p Laparoscopic Cholecystectomy(Not Applicable) - Paul Lopez MD Surgeon Paul Lopez MD Extrusion Die Template Maker СЕРГЕЙ Torrez assisted with tissue retraction, camera op, closure Estimated Blood Loss 5 Findings Consistent with Post-Op Diagnosis
--- NOTE | 2022-09-28 14:20 | Operative Report ---
Post Operative Report Pre & Post Diagnosis Operation Date: 09/28/22 14:00 Pre-Op Diagnosis: Acute calculous cholecystitis Post-Op Diagnosis: Acute calculous cholecystitis I identified the patient and participated in the time-out.: Yes Procedure Operation Date: 09/28/22 14:00 Actual Procedures p Laparoscopic Cholecystectomy(Not Applicable) - Paul Lopez MD Surgeon Paul Lopez MD Elevator Technician СЕРГЕЙ Torrez assisted with tissue retraction, camera op, closure Estimated Blood Loss 5 Findings Consistent with Post-Op Diagnosis Acute cholecystitis Specimens Gallbladder Drains None Anesthesia Type General Complications No immediate complications Description of Procedure The patient was taken to the operating room, and placed supine on the operating table. A timeout was performed, perioperative antibiotics were administered, SCD boots were placed. After adequate anesthesia and analgesia was obtained, the abdomen was prepped and draped in the normal sterile fashion. Local anesthetic was injected into and around the proposed incision sites. An incision was made with a 15 blade scalpel in the supraumbilical region and carried down to the level of the fascia. The fascia was grasped with a trach hook, and a varies needle was used to enter the abdominal cavity. The abdomen was insufflated to a pressure of 15 mmHg, and a 11 mm trocar was placed in this location. A 10 mm, 30 degree laparoscope was placed into the abdominal cavity, and the abdomen was surveyed. Two 5 mm trochars were placed along the right costal margin, and one 5 mm trocar was placed in the subxiphoid region under direct visualization. The gallbladder was grasped and retracted cephalad and laterally, exposing the triangle of Calot. Dissection began in the triangle with a combination of blunt dissection with the [place] dissector, and judicious use of the hook cautery. The cystic duct and cystic artery were dissected free circumferentially, and a critical view of safety was obtained. The cystic duct and cystic artery were clipped and transected, and the gallbladder was removed from the gallbladder fossa with the hook cautery. The camera was switched to a 5 mm, the gallbladder was placed in an Endo Catch bag, and removed via the supraumbilical port site. The camera was switched back to the 10 mm camera, and the abdomen was surveyed again. Hemostasis was checked and attended, and was excellent. The abdomen was copiously irrigated and suctioned free. Again hemostasis was checked and was excellent. All trochars were removed under direct visualization. The abdomen was d esufflated. The fascia in the 11 mm port site was closed with a 0 Vicryl suture. The skin was closed with a running 4-0 Monocryl subcuticular stitch. Dermabond was applied. The patient tolerated the procedure without complication, and was transferred in stable condition to the PACU. All instrument, needle, and sponge counts were correct at the end of the case. My assistant brand manager was necessary throughout the procedure for tissue retraction, possible camera operation, and closure of the wounds. I understand that section 1842(b)(7)(D) of the Social Security act generally prohibits Medicare physician fee schedule payment for the services of assistants at surgery in teaching hospitals when qualified residents are available to furnish such services. I certify that the services for which payment is claimed were medically necessary and that no qualified resident was available to perform the services. I further understand that these services are subject to postpayment review by the Medicare carrier. I attest to the content of the Intraoperative Record and any orders documented therein. Any exceptions are noted below.
[2022-09-28] MEDS ORDERED: SODIUM CHLORIDE 0.9% 50 ML BAG ONE (14:31)
[2022-09-28] MEDS ORDERED: PROMETHAZINE HCL INJ 25 MG/ML 1 ML VIAL ONE (14:32)
--- NOTE | 2022-09-28 15:06 | Anesthesiology Progress Note ---
Date of Service September 28, 2022 Anesthesia Post Procedure Vital Signs Vital Signs: Temp Pulse Pulse Resp BP BP Pulse Ox 09/28/22 15:00 84 22 130/75 94 09/28/22 14:50 82 24 130/78 98 09/28/22 14:40 85 24 124/74 96 09/28/22 14:30 36 C L 96 H 14 124/72 98 09/28/22 10:57 36.8 C 75 20 116/75 99 09/28/22 10:26 70 18 120/75 98 09/28/22 08:11 78 18 125/85 98 09/28/22 05:33 70 15 117/69 98 09/28/22 03:57 09/28/22 03:15 35.8 C L 82 17 120/83 98 O2 Del Method O2 Flow Rate 09/28/22 15:00 Room Air 09/28/22 14:50 Oxymask 9 09/28/22 14:40 Oxymask 9 09/28/22 14:30 Oxymask 9 09/28/22 10:57 Room Air 09/28/22 10:26 Room Air 09/28/22 08:11 Room Air 09/28/22 05:33 09/28/22 03:57 Room Air 09/28/22 03:15 Room Air Pain Intensity Right Upper Abdomen: Pain Intensity: 8 Transfer of Care Handoff Completed per policy Notes Mental Status: alert / awake / arousable and participated in evaluation Patient Amnestic to Procedure: Yes Nausea / Vomiting: adequately controlled Pain: adequately controlled Airway Patency, RR, SpO2: stable & adequate BP & HR: stable & adequate Hydration State: stable & adequate Anesthetic Complications: no major complications apparent
[2022-09-28] MEDS ORDERED: MoRPHine SULFATE 2 MG/ML CARP IV PRN (16:09)
[2022-09-28] MEDS ORDERED: oxyCODONE/ACETAMINOPHEN 5mg/325mg TAB PO PRN (16:09)
[2022-09-28] MEDS ORDERED: KETOROLAC 30 MG/ML VIAL IV PRN (16:09)
[2022-09-28] MEDS ORDERED: diphenhydrAMINE Capsule 25 MG CAP PO PRN (16:09)
[2022-09-28] MEDS: ACETAMINOPHEN 500 MG TAB PO PRN (18:01)
[2022-09-28] MEDS ORDERED: MELATONIN 3 MG TAB PO PRN (21:01)
[2022-09-29] MEDS: ACETAMINOPHEN 500 MG TAB PO PRN (06:23)
[2022-09-29] MEDS ORDERED: LEVOTHYROXINE SODIUM 88 MCG TABLET PO SCH (06:30)
[2022-09-29] MEDS ORDERED: ENOXAPARIN INJ 40 MG/0.4 ML SYR SQ SCH (08:00)
[2022-09-29] MEDS ORDERED: ESCITALOPRAM OXALATE 10 MG TAB PO SCH (09:00)
--- NOTE | 2022-09-29 10:51 | Discharge Summary ---
Date of Service September 29, 2022 Admission HPI Per Admitting Provider Marge is a 22 year-old female with history of anxiety and hasimoto's thyroiditis presented to ED with complaint of RUQ abdominal pain with associated nausea and vomiting x 1. Pain started last evening around 11 pm. Sudden onset of RUQ pain with radiation to her back. No fevers or chills. Associated nausea with one episode of vomiting. Denies chest pain, shortness of breath, diarrhea, constipation, blood in stools, difficulty urinating or blood in urine. No prior history of gallbladder issues. No prior abdominal surgeries. No blood thining agents. ER work-up included labs which showed no leukocytosis, t. bili and lfts wnl. Ultrasound showing gallstones with no evidence of acute cholecystitis however MRI for follow-up of liver lesions showing distended gallbladder with wall thickening and pericholecystic fluid concerning for acute cholecystitis. Principal Diagnosis acute calculous cholecystitis Discharge Exam Constitutional WD/WN, vitals as above + obese, cooperative and comfortable; + not well nourished, no acute distress and not ill appearing Neck normal visual inspection and trachea midline Respiratory normal respiratory effort; no respiratory distress Gastrointestinal (Abdomen) Inspection/Auscultation: abdomen normal to inspection and + abdominal surgical incision (c/d/i with dermabond); abdomen not distended Percussion/Palpation: + abdomen tender (at incision sites appropriate postop) and abdomen soft; no guarding, abdomen not rigid and abdomen not firm Skin no rashes, warm and dry Psychiatric A+Ox3, euthymic affect Discharge Data Allergies Allergy/AdvReac Type Severity Reaction Status Date / Time No Known Allergies Allergy Verified 09/28/22 11:00 Consultations 09/28/22 10:09 ED Decision to Admit Stat Procedures Performed Operation Date: 09/28/22 14:00 Actual Procedures p Laparoscopic Cholecystectomy(Not Applicable) - Paul Lopez MD Ordered Studies 09/28/22 03:39 US gallbladder Stat 09/28/22 06:45 MRI Abdomen [MR abdomen wo/w con] Urgent Hospital Course (1) Acute calculous cholecystitis: Patient taken to operating room for laparoscopic cholecystectomy by Dr. Lopez on 09/28/2022. Patient found to have acute cholecystitis. Patient tolerated procedure without difficulty. Transferred to recovery then to medical/surgical floor for postoperative care. Diet was advanced as tolerated, activity as tolerated, po pain medicaiton and antiemetics ordered as needed. POD # 1 , avss, postop pain controlled, no n,v, tolerated diet. Patient was discharged home on POD # 1 in stable condition. Total Time Total Time Spent Total Time Spent (In Minutes): 20 Total Time Includes: Examination of the Patient, Discharge Planning and Medication Reconciliation Discharge Plan Discharge Items Patient Disposition: Home - Self-Care Reason For Visit: POSTOP ACUTE CHOLECYSTITIS Discharge Diagnosis: Acute calculous cholecystitis Activity: Per Instructions section Non-emergency contact: Primary Care Provider and Surgeon Call non-emergency contact if: you have any medication questions, your pain is worsening, your pain is concerning for you, you have a fever, your temperature is above 101, your wound has increased redness, your wound has increased drainage and your wound pain has increased Follow-up/Referrals: Paul Lopez MD [Physician] - 10/14/22 10:30 am () Dimas Lopez DO [Primary Care Provider] - Diet: Regular Addtl Attending Provider Instructions: Post-Surgical ~Discharge Instructions Activity Recommendations: - lifting limitation: (20 pounds for 3 weeks), - exercise/sex/sports limit: (nonstrenuous for 2 weeks), - driving or machine use limit: (none for 1 week or until pain free and no longer taking narcotic pain medication, - Shower/bathe limit: (may shower beginning tonight, no submerging underwater for 10-14 days) Diet: - Resume previous diet SPECIAL CARE INSTRUCTIONS: - May shower tonight. Let water run over area and pat dry. - Surgical glue will fall off on its own. - Call the surgeon's office with any questions or concerns - - (ex. temperature higher than 101 degrees F, excessive bleeding or pain). MEDICATIONS: - Resume previous medications unless instructed otherwise by your surgeon. - May alternate extra strength Tylenol and Ibuprofen as needed for mild to moderate pain -650 mg Tylenol every 6 hours as needed - Ibuprofen 600 mg every 6 hours as needed (take with food) - Percocet 1 every 6 hours, as needed for moderate to severe pain - Recommend daily stool softener (Colace) while taking narcotic pain medication to prevent constipation and straining. Drink plenty of water daily. FOLLOW UP VISIT: - If not already scheduled, please call the office to schedule a two week follow-up appointment. Office number Pending Studies at Discharge: Yes (gallbladder pathology, will be reviewed at postop visit) Stand-Alone Forms: My [facility], Smoking Cessation Medications and DC Order Prescriptions: New oxycodone-acetaminophen 5-325 mg tablet 1 tab PO Q6H PRN (Reason: pain) Qty: 5 0RF Continued norethindrone ac-eth estradiol [03/13 (21)] 1-20 mg-mcg tablet 1 tab PO DAILY Qty: 63 4RF escitalopram oxalate [Lexapro] 10 mg tablet 10 mg PO DAILY Qty: 30 3RF hydroxyzine HCl 25 mg tablet 25 mg PO TID PRN (Reason: itching) Qty: 30 2RF ondansetron 4 mg tablet,disintegrating 4 mg PO Q8H PRN (Reason: nausea and vomiting) Qty: 30 1RF cetirizine [Zyrtec] 10 mg tablet 10 mg PO DAILY PRN (Reason: Allergy Symptoms) levothyroxine 88 mcg tablet 88 mcg PO DAILY Qty: 30 4RF Rx Instructions: Take one tablet by mouth once daily. Take 30-45 minutes before any other oral intake. Discharge Orders: Discharge Order (Routine); Ordered 09/29/22 Ordered By: Kasey Wheeler/Other Patient Handouts: Treating Gallstones, Gallstones Dc, ED Gallstones with Biliary Colic Admission Data Admit Date/Time: 09/28/22 14:23 Attending Provider: Paul Lopez Admit Provider: Paul Lopez Primary Care Provider: Dimas Lopez Other Providers: Paul Lopez Other Interventions: Discharge Summary Assessment (RN) Last Done: 09/29/22 11:01
== END 2022-09-29 11:27 | disposition home or self-care (01) ==
LOC: ED 03:11 → 3N 10:50 → OR 10:50